=== PATIENT | female | born 1975 | race Hispanic/Latino ===

== ENCOUNTER 2018-08-28 16:11 | Emergency (ER) | payer SELFPAY ==
[2018-08-28 16:18] VITALS: BP 134/94; PULSE 96; RESP 17; TEMP 98.5; O2SAT 96
--- NOTE | 2018-08-28 17:12 | C.PDOC ---
History Of Present Illness 43 y/o female with a PMHx of alcohol abuse presents to the ED with requesting detox from alcohol. As per patient has been binge drinking for the last few days. Last drink was earlier today. At present time patient appears slightly intoxicated though awake and alert, with some emotional distress. Pt denies any active physical complaints at present time. Ambulatory in ED with stable gait. Time Seen by Provider: 08/28/18 16:57 Chief Complaint (Nursing): Substance Abuse History Per: Patient History/Exam Limitations: no limitations Onset/Duration Of Symptoms: Days Current Symptoms Are (Timing): Still Present Modifying Factor(s): Alcohol Past Medical History Reviewed: Historical Data, Nursing Documentation, Vital Signs Vital Signs: Last Vital Signs Temp 98.5 F 08/28/18 16:17 Pulse 96 H 08/28/18 16:17 Resp 17 08/28/18 16:17 BP 134/94 H 08/28/18 16:17 Pulse Ox 96 08/28/18 16:17 - Medical History PMH: Anxiety, Depression Other PMH: Alcohol Abuse Family History: States: Unknown Family Hx - Social History Hx Alcohol Use: Yes Hx Substance Use: No Review Of Systems Constitutional: Negative for: Fever, Chills Eyes: Negative for: Vision Change Cardiovascular: Negative for: Chest Pain Respiratory: Negative for: Shortness of Breath Gastrointestinal: Negative for: Vomiting, Abdominal Pain Skin: Negative for: Rash Neurological: Negative for: Weakness, Dizziness Psych: Positive for: Other (ETOH abuse). Negative for: Suicidal ideation (or HI) Physical Exam - Physical Exam Appears: Non-toxic, No Acute Distress Skin: Normal Color, Warm, No Rash Head: Atraumatic, Normacephalic Eye(s): bilateral: PERRL Nose: No Flaring, No Discharge Oral Mucosa: Moist, Other (alcohol odor) Throat: No Drooling Cardiovascular: Rhythm Regular, No Murmur Respiratory: No Decreased Breath Sounds, No Accessory Muscle Use, No Rhonchi, No Stridor, No Wheezing Gastrointestinal/Abdominal: Soft, No Tenderness, No Distention, No Rebound Extremity: Normal ROM, No Tenderness, No Deformity, No Swelling Extremity: Bilateral: Atraumatic, Normal ROM (x 4) Neurological/Psych: Oriented x3 ED Course And Treatment O2 Sat by Pulse Oximetry: 96 (RA) Pulse Ox Interpretation: Normal Progress Note: No available detox beds at present time. Crisis evaluated patient in the ER, resources provided for outpatient detox. As per family, pt need some anxiolytic, reports " was unabel to sleep for past few nights". Pt received Ativan 0.5 mg IM #1. On re-eval, pt appears appropriate, AAO#3, not in resp. distress. PuslEOx 96% RA. advised, OBS pt . Advised to F/U detox for beds availability. Return to ED at any time if any worsening or new chnages. patient is stable for d/c, accompanied by . Disposition Counseled Patient/Family Regarding: Diagnosis, Need For Followup - Disposition Referrals: Alcoholics Anonymous [Outside] Community Mental Health [Outside] Disposition: HOME/ ROUTINE Disposition Time: 17:12 Condition: STABLE Additional Instructions: Follow up with Detox program for further evaluation and treatment Instructions: Alcohol Abuse and Alcoholism (DC) Forms: [employer] (H[place]ian) - Clinical Impression Clinical Impression: ETOH abuse - PA / [employer] / Resident Statement MD/DO has reviewed & agrees with the documentation as recorded. - Scribe Statement The provider has reviewed the documentation as recorded by the Scribe Zarina Holland All medical record entries made by the Scribe were at my direction and personally dictated by me. I have reviewed the chart and agree that the record accurately reflects my personal performance of the history, physical exam, medical decision making, and the department course for this patient. I have also personally directed, reviewed, and agree with the discharge instructions and disposition.
== END 2018-08-28 17:52 | disposition home or self-care (01) ==
LOC: C.ER 16:11
DX: F10.10 Alcohol abuse, uncomplicated (principal); Y90.9 Presence of alcohol in blood, level not specified
CPT/HCPCS: 96372; 99283; J2060